=== PATIENT | female | born 1995 | race Caucasian/White ===

== ENCOUNTER 2019-05-29 14:02 | Emergency (ER) | payer SELFPAY ==
[2019-05-29] MEDS: HYDROCODONE/APAP (5/325) TAB PO (15:23)
[2019-05-29] MEDS: KETOROLAC 60 MG INJ IM (15:23)
== END 2019-05-29 18:01 | disposition home or self-care (01) ==
LOC: FTE 14:02
DX: S59.902A Unspecified injury of left elbow, initial encounter (principal); X58.XXXA Exposure to other specified factors, initial encounter; Y92.9 Unspecified place or not applicable
CPT/HCPCS: 73060; 73080-LT; 73090; 81025; 96372; 99284-25